=== PATIENT | male | born 1965 | race American Indian/Alaskan Native ===

== ENCOUNTER 2018-02-19 09:18 | Emergency (ER) | payer MEDICARE ==
[2018-02-19 09:30] VITALS: BP 137/90; PULSE 77; RESP 18; TEMP 97.6; O2SAT 95
[2018-02-19] MEDS ORDERED: Penicillin G Benzathine 2.4 Mill Unit/4 ml Syr IM ONE ×2 (10:26→10:52)
--- NOTE | 2018-02-19 10:50 | C.PDOC ---
History Of Present Illness 52 y/o male presents to the ER for evaluation of a penile lesion to the base of the penis. Patient states that he noticed the lesion after he cleaned his penis. Patient reports that he is sexually active and uses protection. Patient denies having any trauma and other complaints. Time Seen by Provider: 02/19/18 10:16 Chief Complaint (Nursing): Male Genitourinary History Per: Patient History/Exam Limitations: no limitations Onset/Duration Of Symptoms: Hrs Current Symptoms Are (Timing): Still Present Severity: Moderate Past Medical History Reviewed: Historical Data, Nursing Documentation, Vital Signs Vital Signs: Last Vital Signs Temp 97.6 F 02/19/18 09:27 Pulse 77 02/19/18 09:27 Resp 18 02/19/18 09:27 BP 137/90 02/19/18 09:27 Pulse Ox 95 02/19/18 17:16 - Medical History PMH: HTN, Migraine Other Surgeries: Hx of surgeries - [facility] Procedures CLOSURE SKIN & SUBCUTANEOUS NEC (08/29/00) INJECT/INFUSE NEC (10/20/14) Family History: States: No Known Family Hx - Social History Hx Alcohol Use: No (pt denies) Hx Substance Use: No (pt denies) Review Of Systems Except As Marked, All Systems Reviewed And Found Negative. Constitutional: Negative for: Fever, Chills Skin: Positive for: Lesions (penile lesion) Physical Exam - Physical Exam Appears: Non-toxic, No Acute Distress Skin: Normal Color, Warm, Dry Head: Atraumatic, Normacephalic Eye(s): bilateral: Normal Inspection Nose: Normal Oral Mucosa: Moist Neck: Supple Chest: Symmetrical Cardiovascular: Rhythm Regular Respiratory: Normal Breath Sounds, No Rales, No Rhonchi, No Wheezing Male Genital: Other (single papule, eroded and indurated, at base of penis) Extremity: Normal ROM Neurological/Psych: Oriented x3, Normal Speech, Normal Motor, Normal Sensation ED Course And Treatment O2 Sat by Pulse Oximetry: 95 (RA) Pulse Ox Interpretation: Normal Medical Decision Making Medical Decision Making: Plan: --Chlyamdia/GC --Penicillin G Benzathine --Rapid Plasma Reagin Disposition - Disposition Referrals: Jaxson Vila MD [Staff Provider] - Disposition: HOME/ ROUTINE Disposition Time: 05:00 Condition: STABLE Additional Instructions: please follow up with urologist. you may need further diagnositc testing and biopsy. please return to er with any worsening symptoms or concerns. Instructions: Syphilis, Screening for Sexually Transmitted Infections Forms: [facility] (Italian) - Clinical Impression Clinical Impression: Penile lesion - Scribe Statement The provider has reviewed the documentation as recorded by the Scribe Tamir Casey Provider Attestation: All medical record entries made by the Scribe were at my direction and personally dictated by me. I have reviewed the chart and agree that the record accurately reflects my personal performance of the history, physical exam, medical decision making, and the department course for this patient. I have also personally directed, reviewed, and agree with the discharge instructions and disposition.
== END 2018-02-19 10:57 | disposition home or self-care (01) ==
LOC: C.ER 09:18
DX: L98.8 Other specified disorders of the skin and subcutaneous tissue (principal)
CPT/HCPCS: 86592; 87491; 87591; 96372; 99283; J0561

== ENCOUNTER 2018-07-10 20:59 | Observation (INO) | payer MEDICARE ==
[2018-07-10] MEDS ORDERED: Aspirin 325 mg EC Tablets PO STA (21:42)
[2018-07-10 22:03] LABS: BASO % 0.7 % (0.0-2.0); EOS # 0.1 K/uL (0.0-0.7); EOS % 3.1 % (0.0-4.0); HEMOGLOBIN 12.2 g/dL (12.0-18.0); LYMPH # 0.8 K/uL (1.0-4.3); LYMPH % 28.1 % (20.0-40.0); MEAN CELL VOLUME 82.8 fL (80.0-94.0); MEAN CORPUSCULAR HEMOGLOBIN 28.2 pg (27.0-31.0); MEAN CORPUSCULAR HGB CONC 34.1 g/dL (33.0-37.0); MEAN PLATELET VOLUME 7.1 fL (7.2-11.7); MONO # 0.3 K/uL (0.0-0.8); MONO % 8.7 % (0.0-10.0); NEUT # 1.7 K/uL (1.8-7.0); NEUT % 59.4 % (50.0-75.0); NRBC % 0.2 % (0.0-2.0); RBC 4.32 Mil/uL (4.40-5.90); WHITE BLOOD COUNT 2.9 K/uL (4.8-10.8)
[2018-07-10] MEDS ORDERED: Aspirin 325 mg EC Tablets PO ONE (22:08)
[2018-07-10 22:14] LABS: ALB/GLOB RATIO 1.4 (1.0-2.1); ALBUMIN 3.9 g/dL (3.5-5.0); ALT/SGPT 25 U/L (21-72); AST/SGOT 19 U/L (17-59); BLOOD UREA NITROGEN 13 mg/dL (9-20); GFR AFRICAN-AMERICAN > 60; GFR NON-AFRICAN AMERICAN > 60
[2018-07-10 22:20] LABS: URINE BILIRUBIN NEGATIVE (NEGATIVE); URINE BLOOD NEGATIVE (NEGATIVE); URINE CLARITY Clear (Clear); URINE COLOR Yellow (YELLOW); URINE GLUCOSE (UA) NORMAL (Normal); URINE LEUKOCYTE ESTERASE NEG Leu/uL (Negative); URINE PROTEIN NEGATIVE (NEGATIVE); URINE UROBILINOGEN NORMAL mg/dL (0.2-1.0)
[2018-07-10 22:25] LABS: INR 1.1; PARTIAL THROMBOPLASTIN TIME 39 SECONDS (21-34); PROTHROMBIN TIME 12.1 SECONDS (9.7-12.2)
[2018-07-10 22:26] LABS: B-TYPE NATRIURETIC PEPTIDE 231 pg/mL (0-900); CK-MB 0.81 ng/mL (0.0-3.38); D DIMER < 200 ng/mlDDU (0-243)
[2018-07-10 22:35] LABS: BARBITURATES, UR NEGATIVE (NEGATIVE); BENZODIAZEPINES, UR NEGATIVE (NEGATIVE); OPIATES, UR NEGATIVE (NEGATIVE); PHENCYCLIDINE, UR NEGATIVE (NEGATIVE)
--- NOTE | 2018-07-11 00:43 | C.PDOC ---
History Of Present Illness Pt c/o left sided chest pain radiating to the LUE. Time Seen by Provider: 07/10/18 21:24 Chief Complaint (Nursing): Chest Pain History Per: Patient Onset/Duration Of Symptoms: Hrs (Just [employer]) Current Symptoms Are (Timing): Still Present Severity: Moderate Quality: "Pain" Associated Symptoms: denies: Nausea, Dyspnea, Diaphoresis, Syncope Modifying Factors: Other Indicated Below Alleviating Factors: None Additional History Per: Prior Records Past Medical History Reviewed: Historical Data, Nursing Documentation, Vital Signs Vital Signs: Last Vital Signs Temp 97.9 F 07/10/18 21:06 Pulse 74 07/10/18 21:06 Resp 20 07/10/18 21:06 BP 144/96 H 07/10/18 21:06 Pulse Ox 97 07/10/18 21:06 - Medical History PMH: HTN, Migraine - [facility] Procedures CLOSURE SKIN & SUBCUTANEOUS NEC (08/29/00) INJECT/INFUSE NEC (10/20/14) Family History: States: Unknown Family Hx - Social History Hx Tobacco Use: No Hx Alcohol Use: No (pt denies) Hx Substance Use: No (pt denies) Review Of Systems Except As Marked, All Systems Reviewed And Found Negative. Constitutional: Negative for: Fever, Weakness Cardiovascular: Positive for: Chest Pain Respiratory: Negative for: Shortness of Breath Gastrointestinal: Negative for: Vomiting, Abdominal Pain Musculoskeletal: Positive for: Other (Right knee pain). Negative for: Neck Pain , Back Pain Skin: Negative for: Rash Neurological: Negative for: Weakness, Numbness, Seizures Physical Exam - Physical Exam Appears: Non-toxic, No Acute Distress Skin: Normal Color, Warm, Dry Head: Atraumatic, Normacephalic Eye(s): bilateral: PERRL, EOMI Neck: Normal ROM, Supple Chest: Symmetrical, No Deformity Cardiovascular: Rhythm Regular Respiratory: Normal Breath Sounds, No Accessory Muscle Use Gastrointestinal/Abdominal: Soft, No Tenderness Extremity: Normal ROM, Tenderness (right knee, but no signs of trauma), No Swelling Pulses: Left Radial: Normal, Right Dorsalis Pedis: Normal Neurological/Psych: Oriented x3, Normal Motor, Normal Sensation ED Course And Treatment - Laboratory Results Result Diagrams: 07/10/18 21:58 07/10/18 21:58 Lab Interpretation: No Acute Changes ECG: Interpreted By Me, Viewed By Me ECG Rhythm: Sinus Rhythm ECG Interpretation: No Acute Changes Rate From EC O2 Sat by Pulse Oximetry: 97 Pulse Ox Interpretation: Normal - Radiology CXR: Interpreted by Me, Viewed By Me CXR Interpretation: Yes: No Acute Disease, Heart Size (wnl) Progress - Interventions Interventions:: Observation - Medications Administered Oral: Aspirin - Data Reviewed Data Reviewed: Lab, Diagnostic imaging, EKG, Old records - Patient Status Patient status: Mostly improved - Continuity of Care Discussed patient case with:: Patient, ED Nurse, On-call PMD-pt unassigned Disposition Discussed With : Reina Cisneros Comment: She accepted pt on her service and gave admitting orders to the nurse. Doctor Will See Patient In The: Hospital Counseled Patient/Family Regarding: Studies Performed, Diagnosis - Disposition Disposition: HOSPITALIZED Disposition Time: 00:44 Condition: FAIR - Clinical Impression Clinical Impression: Acute chest pain
[2018-07-11 08:01] LABS: BASO % 0.6 % (0.0-2.0); EOS # 0.1 K/uL (0.0-0.7); EOS % 3.4 % (0.0-4.0); HEMOGLOBIN 11.6 g/dL (12.0-18.0); LYMPH % 32.8 % (20.0-40.0); MEAN CELL VOLUME 83.1 fL (80.0-94.0); MEAN CORPUSCULAR HEMOGLOBIN 28.1 pg (27.0-31.0); MEAN CORPUSCULAR HGB CONC 33.9 g/dL (33.0-37.0); MEAN PLATELET VOLUME 7.8 fL (7.2-11.7); MONO # 0.2 K/uL (0.0-0.8); MONO % 7.8 % (0.0-10.0); NEUT # 1.8 K/uL (1.8-7.0); NEUT % 55.4 % (50.0-75.0); NRBC % 0.1 % (0.0-2.0); RBC 4.11 Mil/uL (4.40-5.90); RED CELL DISTRIBUTION WIDTH 13.7 % (11.5-14.5); WHITE BLOOD COUNT 3.2 K/uL (4.8-10.8)
[2018-07-11 08:09] LABS: ALB/GLOB RATIO 1.4 (1.0-2.1); ALBUMIN 3.7 g/dL (3.5-5.0); ALT/SGPT 25 U/L (21-72); AST/SGOT 20 U/L (17-59); BLOOD UREA NITROGEN 11 mg/dL (9-20); CALCIUM 9.2 mg/dl (8.6-10.4); GFR AFRICAN-AMERICAN > 60; GFR NON-AFRICAN AMERICAN > 60; HDL CHOLESTEROL 47 mg/dL (30-70)
[2018-07-11 08:19] LABS: LDL CHOLESTEROL 50 mg/dL (0-129)
[2018-07-11 08:21] LABS: CK-MB 0.68 ng/mL (0.0-3.38)
--- NOTE | 2018-07-11 10:40 | RAD ---
Date of service: 07/10/2018 PROCEDURE: CHEST RADIOGRAPH, 1 VIEW HISTORY: chest pain COMPARISON: None available. FINDINGS: LUNGS: The lungs are well inflated and clear. PLEURA: No pneumothorax or pleural fluid seen. CARDIOVASCULAR: Normal. OSSEOUS STRUCTURES: No significant abnormalities. VISUALIZED UPPER ABDOMEN: Normal. OTHER FINDINGS: None. IMPRESSION: No active pulmonary disease.
--- NOTE | 2018-07-11 12:33 | CARD ---
APPROVED REPORT Date of service: 07/11/2018 EKG Measurement Heart [id number] MD [id number] <Conclusion> Sinus bradycardia Otherwise normal ECG
--- NOTE | 2018-07-11 12:34 | CARD ---
APPROVED REPORT Date of service: 07/10/2018 EKG Measurement Heart [id number] [place] [id number] <Conclusion> Normal sinus rhythm Normal ECG
--- NOTE | 2018-07-11 14:04 | CP.PCM.PN ---
Subjective - Date & Time of Evaluation Date of Evaluation: 07/11/18 Time of Evaluation: 14:03 - Subjective Subjective: H&P dictated #[id number] Objective - Vital Signs/Intake and Output Vital Signs (last 24 hours): Temp Pulse Resp BP Pulse Ox 98.2 F 54 L 18 123/88 99 07/11/18 07:00 07/11/18 07:00 07/11/18 07:00 07/11/18 10:02 07/11/18 07:00 - Medications Medications: Current Medications Aspirin (Aspirin) 325 mg PO DAILY [facility] Last Admin: 07/11/18 10:02 Dose: 325 mg Metoprolol Tartrate (Lopressor) 25 mg PO BID [facility] Last Admin: 07/11/18 10:02 Dose: 25 mg - Labs Labs: 07/11/18 07:47 07/11/18 07:47 PT 12.1 SECONDS (9.7-12.2) 07/10/18 21:58 INR 1.1 07/10/18 21:58 APTT 39 SECONDS (21-34) H 07/10/18 21:58
--- NOTE | 2018-07-11 14:25 | CP.PCM.CON ---
History of Present Illness - History of Present Illness History of Present Illness: CONSULT HPI 52 years old black male with a history of hypertension admitted from [facility] by the emergency room complaining of atypical chest pain localized to retrosternal area. Patient was admitted in 2016 at [facility] for chest pain and cardiac workup was negative. Patient is a history of stroke in 2005 and since then has some weakness on the right side PAST HIST. PERSONAL HIST: Smoking. N Alcohol. N Allergy N Travel_- . FAMILY HIST : ROS : Constitutional: Negative for weight change, chills, night sweats, fatigue and usage of assist device. Eyes: Negative for redness, swelling, itching, discharge, vision changes, blurry vision, double vision, glaucoma, cataracts, Ears: Negative for hearing loss, ringing, , tinnitus, vertigo Nose: Negative for rhinorrhea, stuffiness, sniffing, itching, postnasal drip, discoloration, nasal congestion and epistaxis. Throat: Negative for throat clearing, sore throat, hoarseness, difficulty swallowing and difficulty speaking. Respiratory: Negative for cough, , sputum production, chest tightness, wheezing, pleuritic chest pain ,daytime somnolence, chronic cough, hemoptysis, snoring at night, Cardiovascular: Negative for, Edema of legs, leg cramps, angina, claudication, , irregular heartbeat, Neurology: Negative for irritability, , numbness and tingling, seizures, tremors, migraines, slurred speech, syncope, memory loss, mood changes, recurrent headaches right lower extremity weakness Gastrointestinal: Negative for difficulty swallowing, diarrhea, constipation, black stools, rectal bleeding, nausea, flatulence, reflux, poor appetite, changes in bowel habits, abdominal pain Genitourinary: Negative for frequent urination, hematuria, discharge, incontinence, urinary retention, frequent UTI, Psychiatric: Negative for depression, anxiety/panic, suicidal tendencies, Musculoskeletal: Negative for swollen joints, back pain, , neck pain, morning stiffness of joints, . Skin: Negative for rash, ulcers, itching, dry skin and pigmented lesions. P/E: Constitutional: Appears stated age and in no apparent distress. Head: Normocephalic. Ears: External ear canals patent without inflammation. Tympanic membranes intact with normal light reflex and landmark. Eyes: Pupils are central, bilaterally equal, symmetrical and reacts to light with normal movements and no icterus or pallor. Nose: External nares are patent. Mucosa is pink Mouth-Throat: Good general appearance and condition. No post-pharyngeal/oropharyngeal erythema and tonsillar hypertrophy. Good dental hygiene. Neck-Lymphatic: Neck is supple with normal ROM, no thyromegaly, lymph nodes or masses. JVD is normal with no carotid bruit. Lungs: Clear to percussion and auscultation with bilateral normal air entry. Cardiovascular: S1 and S2 are normal with no murmurs, gallops and rub. GI Exam: No hepatomegaly. Abdomen is soft and non-tender. No Organomegaly , masses or hernias are evident and bowel sounds are normal and active. Neurology: Higher function and right facial droop, with right lower extremity weakness Superficial and deep reflexes are normal with downwards planters. No cerebellar deficit with normal gait. Musculoskeletal: No tender spots with normal curvature of the spine with no swelling or restricted ROM of the small and large joints. Extremities: Homans sign absent. Intact pulses with no pitting edema, calf tenderness or skin color changes. Skin: No rash, eruptions or abnormal skin pigmentation LAB/RADIOLOGY: ASSESMENT : Atypical chest pain with history of hypertension and stroke acute coronary syndrome PLAN: Follow serial cardiac enzymes and echocardiogram and plan further Past Patient History - Past Medical History & Family History Past Medical History?: Yes - Past Social History Smoking Status: Never Smoked - CARDIAC Hx Hypertension: Yes - NEUROLOGICAL Hx Migraine: Yes - MUSCULOSKELETAL/RHEUMATOLOGICAL Hx Falls: No - PSYCHIATRIC Hx Substance Use: No (pt denies) - SURGICAL HISTORY Hx Surgeries: Yes Other/Comment: right finger surgery - ANESTHESIA Hx Anesthesia: Yes Hx Anesthesia Reactions: No Meds Allergies/Adverse Reactions: Allergies Allergy/AdvReac Type Severity Reaction Status Date / Time No Known Allergies Allergy Verified 02/25/16 08:13 - Medications Medications: Current Medications Aspirin (Aspirin) 325 mg PO DAILY [facility] Last Admin: 07/11/18 10:02 Dose: 325 mg Metoprolol Tartrate (Lopressor) 25 mg PO BID [facility] Last Admin: 07/11/18 10:02 Dose: 25 mg Results - Vital Signs Recent Vital Signs: Last Vital Signs Temp 98.2 F 07/11/18 07:00 Pulse 54 L 07/11/18 07:00 Resp 18 07/11/18 07:00 BP 123/88 07/11/18 10:02 Pulse Ox 99 07/11/18 07:00 - Labs Result Diagrams: 07/11/18 07:47 07/11/18 07:47 Labs: Laboratory Results - last 24 hr 07/10/18 07/10/18 07/10/18 21:58 21:58 21:58 WBC 2.9 L RBC 4.32 L Hgb 12.2 Hct 35.8 MCV 82.8 MCH 28.2 MCHC 34.1 RDW 14.0 Plt Count 162 MPV 7.1 L Neut % (Auto) 59.4 Lymph % (Auto) 28.1 [place] % (Auto) 8.7 Eos % (Auto) 3.1 Baso % (Auto) 0.7 Neut # (Auto) 1.7 L Lymph # (Auto) 0.8 L [place] # (Auto) 0.3 Eos # (Auto) 0.1 Baso # (Auto) 0.0 PT 12.1 INR 1.1 APTT 39 H D-Dimer, Quantitative < 200 Sodium 139 Potassium 3.9 Chloride 101 Carbon Dioxide 28 Anion Gap 14 BUN 13 Creatinine 1.0 Est GFR ( Amer) > 60 Est GFR (Non-Af Amer) > 60 Random Glucose 78 Calcium 9.0 Total Bilirubin 0.5 AST 19 ALT 25 Alkaline Phosphatase 64 Total Creatine Kinase 170 CK-MB (Mass) 0.81 Troponin I < 0.0120 NT-Pro-B Natriuret Pep 231 Total Protein 6.6 Albumin 3.9 Globulin 2.7 Albumin/Globulin Ratio 1.4 Triglycerides Cholesterol LDL Cholesterol Direct HDL Cholesterol TSH 3rd Generation Urine Color Urine Clarity Urine pH Ur Specific [place] Urine Protein Urine Glucose (UA) Urine Ketones Urine Blood Urine Nitrate Urine Bilirubin Urine Urobilinogen Ur Leukocyte Esterase Urine WBC (Auto) Urine Opiates Screen Urine Methadone Screen Ur Barbiturates Screen Ur Phencyclidine Scrn Ur Amphetamines Screen U Benzodiazepines Scrn U Oth Cocaine Metabols U Cannabinoids Screen 07/10/18 07/10/18 07/11/18 22:13 22:13 07:47 WBC 3.2 L RBC 4.11 L Hgb 11.6 L Hct 34.1 L MCV 83.1 MCH 28.1 MCHC 33.9 RDW 13.7 Plt Count 159 MPV 7.8 Neut % (Auto) 55.4 Lymph % (Auto) 32.8 [place] % (Auto) 7.8 Eos % (Auto) 3.4 Baso % (Auto) 0.6 Neut # (Auto) 1.8 Lymph # (Auto) 1.0 [place] # (Auto) 0.2 Eos # (Auto) 0.1 Baso # (Auto) 0.0 PT INR APTT D-Dimer, Quantitative Sodium Potassium Chloride Carbon Dioxide Anion Gap BUN Creatinine Est GFR ( Amer) Est GFR (Non-Af Amer) Random Glucose Calcium Total Bilirubin AST ALT Alkaline Phosphatase Total Creatine Kinase CK-MB (Mass) Troponin I NT-Pro-B Natriuret Pep Total Protein Albumin Globulin Albumin/Globulin Ratio Triglycerides Cholesterol LDL Cholesterol Direct HDL Cholesterol TSH 3rd Generation Urine Color Yellow Urine Clarity Clear Urine pH 5.0 Ur Specific [place] 1.009 Urine Protein Negative Urine Glucose (UA) Normal Urine Ketones Negative Urine Blood Negative Urine Nitrate Negative Urine Bilirubin Negative Urine Urobilinogen Normal Ur Leukocyte Esterase Neg Urine WBC (Auto) 1 Urine Opiates Screen Negative Urine Methadone Screen Negative Ur Barbiturates Screen Negative Ur Phencyclidine Scrn Negative Ur Amphetamines Screen Negative U Benzodiazepines Scrn Negative U Oth Cocaine Metabols Negative U Cannabinoids Screen Negative 07/11/18 07/11/18 07:47 07:47 WBC RBC Hgb Hct MCV MCH MCHC RDW Plt Count MPV Neut % (Auto) Lymph % (Auto) [place] % (Auto) Eos % (Auto) Baso % (Auto) Neut # (Auto) Lymph # (Auto) [place] # (Auto) Eos # (Auto) Baso # (Auto) PT INR APTT D-Dimer, Quantitative Sodium 142 Potassium 4.1 Chloride 103 Carbon Dioxide 34 H Anion Gap 9 L BUN 11 Creatinine 1.1 Est GFR ( Amer) > 60 Est GFR (Non-Af Amer) > 60 Random Glucose 80 Calcium 9.2 Total Bilirubin 0.5 AST 20 ALT 25 Alkaline Phosphatase 51 Total Creatine Kinase 158 CK-MB (Mass) 0.68 Troponin I < 0.0120 NT-Pro-B Natriuret Pep Total Protein 6.2 L Albumin 3.7 Globulin 2.6 Albumin/Globulin Ratio 1.4 Triglycerides 45 Cholesterol 129 LDL Cholesterol Direct 50 HDL Cholesterol 47 TSH 3rd Generation 1.93 Urine Color Urine Clarity Urine pH Ur Specific [place] Urine Protein Urine Glucose (UA) Urine Ketones Urine Blood Urine Nitrate Urine Bilirubin Urine Urobilinogen Ur Leukocyte Esterase Urine WBC (Auto) Urine Opiates Screen Urine Methadone Screen Ur Barbiturates Screen Ur Phencyclidine Scrn Ur Amphetamines Screen U Benzodiazepines Scrn U Oth Cocaine Metabols U Cannabinoids Screen
[2018-07-11 15:28] LABS: CK-MB 0.81 ng/mL (0.0-3.38)
[2018-07-11] MEDS ORDERED: Oxycodone/Acetaminophen 5/325 mg Tab PO PRN (15:50)
--- NOTE | 2018-07-11 15:52 | RAD ---
Date of service: 07/11/2018 PROCEDURE: Right Knee Radiographs. HISTORY: Pain COMPARISON: None. FINDINGS: BONES: Bone alignment and mineralization are normal. There is no acute displaced fracture or bone destruction. There is a prominent superior patellar enthesophyte. JOINTS: Normal. No osteoarthritis. JOINT EFFUSION: None. OTHER FINDINGS: None. IMPRESSION: No acute fracture or dislocation.
--- NOTE | 2018-07-12 04:25 | HP ---
Copied To: Reina Cisneros MD Attending MD: Reina Cisneros MD CHIEF COMPLAINT: The patient started having sudden onset of right knee joint pain, [place]. The pain got worse and then he started noticing left arm pain and left-sided chest pain which was sharp in nature, not associated with any shortness of breath, wheezing, diaphoresis, or dizziness. The pain lasted for about 20 minutes, then it decreased in intensity, but felt a severe pain by the time he came into the hospital. In the ED, he received treatment and slightly felt better, but still complaining of right knee joint pain. He denies any headache, dizziness. Denies any nausea, vomiting, but complaining of left-sided minimal chest pain, sharp in nature, not associated with any other symptoms. Denies any abdominal pain, diarrhea, or constipation. Complaining of right knee joint pain and he is not able to bend his right knee. This is the first time that he is having right knee pain and chest pain. He never had similar symptoms in the past. PAST MEDICAL HISTORY: Hypertension, migraine, and questionable traumatic brain injury. Following up with neurologist, . No history of diabetes or coronary artery disease. FAMILY HISTORY: Asthma in mother who is 80 years old, father . PAST SURGICAL HISTORY: Underwent finger surgeries many years ago. PERSONAL HISTORY: He is single, lives alone. Not having any children. Currently, he is not working. 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 SOCIAL HISTORY: Denies smoking, alcohol, or drug abuse. ALLERGIES: NO KNOWN DRUG ALLERGIES. MEDICATIONS: He could not recall the medications that he takes at home, but he thinks that medication is for his migraine. He takes only as needed basis. PHYSICAL EXAMINATION: GENERAL: Middle-aged male, lying in bed, in no acute distress. VITAL SIGNS: Blood pressure 130/86, pulse 54, respirations 18, temperature 98.2 degrees Fahrenheit, O2 saturation is 99% on room air. HEENT: Pupils equal, round, and reacting to light and accommodation. Extraocular muscles intact. No icterus. No pallor. No oral thrush. No pharyngeal congestion. NECK: Supple. No JVD. No thyromegaly. CHEST: Moving equally bilaterally on respiration. LUNGS: Bilateral vesicular breath sounds. No wheezing. No rhonchi. CVS: S1, S2 present. Regular. ABDOMEN: Soft, nontender. Bowel sounds present. No guarding. No rigidity. No rebound tenderness noted. CARBONATOR: Alert, awake, and oriented x3. No focal deficits noted. EXTREMITIES: Right extremity, knee joint tenderness present. Limited range of movements at the knee joint, right side. No edema. Palpable peripheral pulses. LABORATORY DATA: Labs done from the ED: WBC 2.9, hemoglobin 12.2, hematocrit 35.8, platelets 162. PT 12.1, INR 1.1, PTT 39. D-dimer less than 200, sodium 139, potassium 3.9, chloride 101, bicarb 28, BUN 13, creatinine 1, glucose 78, calcium 9. Total bilirubin 0.5. AST 19, ALT 25, alkaline phosphatase 64. Total CPK 170. Cardiac enzymes negative. ProBNP 231. Total protein 6.6, albumin 3.9, globulin 2.7. UA negative. Urine tox screen negative. Chest x-ray, negative. EKG: Consistent with normal sinus rhythm at 67 beats per minute. No acute ST-T changes. Echocardiogram done, but results pending. ASSESSMENT AND PLAN: Middle-aged male with prior history of migraine, hypertension, questionable history of cerebrovascular accident with some right-sided weakness for many years who came into the emergency room with left-sided chest pain and right knee joint pain and able to ambulate in the ED. The patient was evaluated and admitted for further evaluation of his coronary artery disease. 1. Left-sided chest pain, rule out acute coronary syndrome. His symptoms are consistent with atypical chest pain. 2. Right knee joint pain, possible osteoarthritis. 3. History of hypertension. 4. History of migraine headaches. 5. Questionable history of cerebrovascular disease with right-sided weakness, more than the lower extremity. PLAN: The patient is being admitted to cardiac telemetry. We will do serial cardiac enzymes, serial EKGs. We will check echocardiogram. We will give aspirin 325 mg p.o. daily, start metoprolol 25 mg p.o. daily. The patient is noncompliant with his medications, claiming he is not taking any medications for the blood pressure. We will obtain Cardiology evaluation with Dr. Pena. We will follow up with the knee x-ray and echocardiogram reports. We will monitor his blood pressure closely. We will add Motrin for right knee pain. We will add further recommendations as his clinical course progresses. Reina Cisneros MD
--- NOTE | 2018-07-12 11:19 | CP.PCM.PN ---
Subjective - Date & Time of Evaluation Date of Evaluation: 07/12/18 Time of Evaluation: 11:19 - Subjective Subjective: Progress note dictated #[id number] Objective - Vital Signs/Intake and Output Vital Signs (last 24 hours): Temp Pulse Resp BP Pulse Ox 98.0 F 56 L 18 117/81 99 07/12/18 07:25 07/12/18 07:25 07/12/18 07:25 07/12/18 10:22 07/12/18 07:25 Intake and Output: 07/12/18 07/12/18 06:59 18:59 Intake Total 110 Output Total 400 Balance -290 - Medications Medications: Current Medications Aspirin (Aspirin) 325 mg PO DAILY [facility] Last Admin: 07/12/18 10:22 Dose: 325 mg Ibuprofen (Motrin Tab) 400 mg PO Q8H PRN PRN Reason: Pain, moderate (4-7) Last Admin: 07/12/18 06:24 Dose: 400 mg Metoprolol Tartrate (Lopressor) 25 mg PO BID [facility] Last Admin: 07/12/18 10:22 Dose: 25 mg Oxycodone/Acetaminophen (Percocet 5/325 Mg Tab) 1 tab PO Q6H PRN PRN Reason: Pain, severe (8-10) Stop: 07/14/18 15:51 - Labs Labs: 07/11/18 07:47 07/11/18 07:47 PT 12.1 SECONDS (9.7-12.2) 07/10/18 21:58 INR 1.1 07/10/18 21:58 APTT 39 SECONDS (21-34) H 07/10/18 21:58
--- NOTE | 2018-07-12 12:12 | CARD ---
APPROVED REPORT Date of service: 07/11/2018 EXAM: Two-dimensional and M-mode echocardiogram with Doppler and color Doppler. Other Information Quality : GoodRhythm : INDICATION Dyspnea Chest Pain RISK FACTORS Hypertension 2D DIMENSIONS IVSd0.7 (0.7-1.1cm)Aortic Root (2D)3.1 (2.0-3.7cm) LVDd4.6 (3.9-5.9cm)PWd0.8 (0.7-1.1cm) LVDs3.1 (2.5-4.0cm)FS (%) 32.1 % LVEF (%)60.4 (>50%) M-Mode DIMENSIONS RVDd2.07 (2.1-3.2cm)Left Atrium (MM)3.61 (2.5-4.0cm) IVSd0.91 (0.7-1.1cm)Aortic Root3.23 (2.2-3.7cm) LVDd4.83 (4.0-5.6cm)Aortic Cusp Exc.2.23 (1.5-2.0cm) PWd0.94 (0.7-1.1cm)FS (%) 35 % LVDs3.13 (2.0-3.8cm)TAPSE24.08 cm LVEF (%)64 (>50%) Mitral Valve MV E Wmajpqsz59.6cm/sMV A Mcaimtoh29.5cm/sE/A ratio1.3 PISA0.67 cm TDI E/Lateral E'0.0E/Medial E'0.0 Tricuspid Valve TR Peak [id number]/sTR Peak [id number] LEFT VENTRICLE The left ventricle is normal size. There is normal left ventricular wall thickness. The Ejection Fraction is 60-65%. There is normal LV segmental wall motion. The left ventricular diastolic function is normal. RIGHT VENTRICLE The right ventricle is normal size. The right ventricular systolic function is normal. ATRIA The left atrium size is normal. The right atrium size is normal. The interatrial septum is intact with no evidence for an atrial septal defect. AORTIC VALVE The aortic valve is trileaflet. No aortic regurgitation is present. MITRAL VALVE The mitral valve is normal in structure. Mitral regurgitation is mild. TRICUSPID VALVE The tricuspid valve is normal in structure. There is mild tricuspid regurgitation. Right ventricular systolic pressure is estimated at 30 mmHg. There is no pulmonary hypertension. PULMONIC VALVE The pulmonary valve is normal in structure. GREAT VESSELS The aortic root is normal in size. normal size ivc with poor inspiratory collapse. PERICARDIAL EFFUSION There is no pericardial effusion. <Conclusion> The left ventricle is normal size. The Ejection Fraction is 60-65%. The left ventricular diastolic function is normal. Mitral regurgitation is mild. There is mild tricuspid regurgitation. Right ventricular systolic pressure is estimated at 30 mmHg. There is no pulmonary hypertension. normal size ivc with poor inspiratory collapse. There is no pericardial effusion.
--- NOTE | 2018-07-12 14:00 | CP.PCM.PN ---
Subjective - Date & Time of Evaluation Date of Evaluation: 07/12/18 Time of Evaluation: 13:59 - Subjective Subjective: cardiac workup shows negative cardiac enzymes 3. No new EKG changes Echocardiogram showed normal left ventricular systolic function with no wall motion abnormality. Currently patient has some atypical chest discomfort and leg pains Patient is clear for discharge and obtain IV Lexiscan Myoview stress test as an outpatient. Objective - Vital Signs/Intake and Output Vital Signs (last 24 hours): Temp Pulse Resp BP Pulse Ox 98.0 F 56 L 18 117/81 99 07/12/18 07:25 07/12/18 07:25 07/12/18 07:25 07/12/18 10:22 07/12/18 07:25 Intake and Output: 07/12/18 07/12/18 11:59 23:59 Intake Total 110 Output Total 400 Balance -290 - Medications Medications: Current Medications Aspirin (Aspirin) 325 mg PO DAILY [facility] Last Admin: 07/12/18 10:22 Dose: 325 mg Ibuprofen (Motrin Tab) 400 mg PO Q8H PRN PRN Reason: Pain, moderate (4-7) Last Admin: 07/12/18 06:24 Dose: 400 mg Metoprolol Tartrate (Lopressor) 25 mg PO BID [facility] Last Admin: 07/12/18 10:22 Dose: 25 mg Oxycodone/Acetaminophen (Percocet 5/325 Mg Tab) 1 tab PO Q6H PRN PRN Reason: Pain, severe (8-10) Stop: 07/14/18 15:51 - Labs Labs: 07/11/18 07:47 07/11/18 07:47 PT 12.1 SECONDS (9.7-12.2) 07/10/18 21:58 INR 1.1 07/10/18 21:58 APTT 39 SECONDS (21-34) H 07/10/18 21:58
[2018-07-12 14:10] LABS: IRON 48 ug/dL (49-181)
[2018-07-12 14:20] LABS: % IRON SATURATION 20 (20-55); TOTAL IRON BINDING CAPACITY 244 ug/dL (250-450)
[2018-07-12 15:30] LABS: FERRITIN 64.1 ng/mL
[2018-07-12 15:59] LABS: FOLATE > 20.0 ng/mL
[2018-07-12 19:22] VITALS: RESP 20
--- NOTE | 2018-07-13 01:59 | PN ---
Copied To: Reina Cisneros MD Attending MD: Reina Cisneros MD DATE: 07/12/2018 SUBJECTIVE: The patient was seen and examined at bedside. The patient is still complaining of right knee pain and claiming that he is not able to ambulate. Denies any chest pain. Denies any nausea or vomiting. REVIEW OF SYSTEMS: All other systems reviewed and were found to be negative. PHYSICAL EXAMINATION: GENERAL: Middle-aged male, lying in bed, in no acute distress. VITAL SIGNS: Blood pressure 123/85, pulse 56, respirations 18, temperature 98 degrees Fahrenheit, and O2 saturations 99% on room air. HEENT: Pupils are equal, round, and reacting to light and accommodation. Extraocular muscles intact. No icterus. No pallor. No oral thrush. No pharyngeal congestion. NECK: Supple. No JVD. LUNGS: Bilateral vesicular breath sounds. No wheezing. No rhonchi. CARDIOVASCULAR SYSTEM: S1 and S2 present. Regular. ABDOMEN: Soft and nontender. Bowel sounds present. No guarding. No rigidity. No rebound tenderness noted. CENTRAL NERVOUS SYSTEM: Alert, awake, and oriented x3. No focal deficits noted. EXTREMITIES: Right knee joint tenderness noted, limited movements at the right knee joint. No edema. Palpable peripheral pulses. MEDICATIONS: Include aspirin 325 mg p.o. daily, Motrin 400 mg p.o. every 8 hours p.r.n., Lopressor 25 mg p.o. b.i.d., Percocet as needed. LABORATORY DATA: Cardiac enzymes x3 negative. B12 is 265, folate is more than 20, TSH is 1.93. Iron is 48, TIBC is 244, iron saturation is 20, ferritin is 64.1. Echocardiogram consistent with ejection fraction of 60% to 65%. Left ventricle is normal size. Mild tricuspid regurgitation. ASSESSMENT AND PLAN: A middle-aged male with history of hypertension, migraine, admitted for right lower extremity pain, mainly the right knee joint pain and atypical chest pain. Acute coronary syndrome ruled out by negative cardiac enzymes, negative EKGs, and normal echocardiogram. The patient is still complaining of right knee joint pain. We will request physical therapy and occupational therapy. We will continue with pain medication. Continue with aspirin, beta-blockers. Cardiology input appreciated. The patient is cleared cardiac murray. After Physical Therapy evaluation, we will plan discharging the patient. Discussed with Case Management. Reina Cisneros MD
[2018-07-13 16:08] VITALS: BP 111/75; PULSE 71; TEMP 97.7; O2SAT 99
--- NOTE | 2018-07-13 16:11 | CP.PCM.PN ---
Subjective - Date & Time of Evaluation Date of Evaluation: 07/13/18 Time of Evaluation: 16:10 - Subjective Subjective: PT CLEARED FOR D/C HOME TODAY PER DR. WRIGHT. PT TO F/U WITH DR. WALTERS IN THE OFFICE FOR STRESS TEST. RX LEFT FOR PT IN CHART. HOME VNA AND RX FOR CANE GIVEN TO CM. NO FURTHER ORDERS. Objective - Vital Signs/Intake and Output Vital Signs (last 24 hours): Temp Pulse Resp BP Pulse Ox 97.7 F 71 20 111/75 99 07/13/18 15:00 07/13/18 15:00 07/13/18 15:00 07/13/18 15:00 07/13/18 15:00 Intake and Output: 07/13/18 07/13/18 06:59 18:59 Intake Total 10 Balance 10 - Medications Medications: Current Medications Aspirin (Aspirin) 325 mg PO DAILY [facility] Last Admin: 07/13/18 09:28 Dose: 325 mg Cyanocobalamin (Vitamin B12 1000 Mcg/Ml Inj) 1,000 mcg IM DAILY [facility] Last Admin: 07/13/18 09:33 Dose: 1,000 mcg Ibuprofen (Motrin Tab) 400 mg PO Q8H PRN PRN Reason: Pain, moderate (4-7) Last Admin: 07/13/18 09:30 Dose: 400 mg Metoprolol Tartrate (Lopressor) 25 mg PO BID [facility] Last Admin: 07/13/18 09:29 Dose: 25 mg Oxycodone/Acetaminophen (Percocet 5/325 Mg Tab) 1 tab PO Q6H PRN PRN Reason: Pain, severe (8-10) Stop: 07/14/18 15:51 - Labs Labs: 07/11/18 07:47 07/11/18 07:47 PT 12.1 SECONDS (9.7-12.2) 07/10/18 21:58 INR 1.1 07/10/18 21:58 APTT 39 SECONDS (21-34) H 07/10/18 21:58
--- NOTE | 2018-07-13 17:12 | CP.PCM.DIS ---
Provider - Provider Date of Admission: 07/11/18 00:45 Attending physician: Reina Wright MD Hospital Course - Lab Results Lab Results: Most Recent Lab Values WBC 3.2 K/uL (4.8-10.8) L 07/11/18 07:47 RBC 4.11 Mil/uL (4.40-5.90) L 07/11/18 07:47 Hgb 11.6 g/dL (12.0-18.0) L 07/11/18 07:47 Hct 34.1 % (35.0-51.0) L 07/11/18 07:47 MCV 83.1 fL (80.0-94.0) 07/11/18 07:47 MCH 28.1 pg (27.0-31.0) 07/11/18 07:47 MCHC 33.9 g/dL (33.0-37.0) 07/11/18 07:47 RDW 13.7 % (11.5-14.5) 07/11/18 07:47 Plt Count 159 K/uL (130-400) 07/11/18 07:47 MPV 7.8 fL (7.2-11.7) 07/11/18 07:47 Neut % (Auto) 55.4 % (50.0-75.0) 07/11/18 07:47 Lymph % (Auto) 32.8 % (20.0-40.0) 07/11/18 07:47 Kaufman % (Auto) 7.8 % (0.0-10.0) 07/11/18 07:47 Eos % (Auto) 3.4 % (0.0-4.0) 07/11/18 07:47 Baso % (Auto) 0.6 % (0.0-2.0) 07/11/18 07:47 Neut # (Auto) 1.8 K/uL (1.8-7.0) 07/11/18 07:47 Lymph # (Auto) 1.0 K/uL (1.0-4.3) 07/11/18 07:47 Kaufman # (Auto) 0.2 K/uL (0.0-0.8) 07/11/18 07:47 Eos # (Auto) 0.1 K/uL (0.0-0.7) 07/11/18 07:47 Baso # (Auto) 0.0 K/uL (0.0-0.2) 07/11/18 07:47 PT 12.1 SECONDS (9.7-12.2) 07/10/18 21:58 INR 1.1 07/10/18 21:58 APTT 39 SECONDS (21-34) H 07/10/18 21:58 D-Dimer, Quantitative < 200 ng/mlDDU (0-243) 07/10/18 21:58 Sodium 142 mmol/L (132-148) 07/11/18 07:47 Potassium 4.1 mmol/L (3.6-5.2) 07/11/18 07:47 Chloride 103 mmol/L (98-107) 07/11/18 07:47 Carbon Dioxide 34 mmol/L (22-30) H 07/11/18 07:47 Anion Gap 9 (10-20) L 07/11/18 07:47 BUN 11 mg/dL (9-20) 07/11/18 07:47 Creatinine 1.1 mg/dL (0.8-1.5) 07/11/18 07:47 Est GFR ( Amer) > 60 07/11/18 07:47 Est GFR (Non-Af Amer) > 60 07/11/18 07:47 Random Glucose 80 mg/dL (75-110) 07/11/18 07:47 Calcium 9.2 mg/dl (8.6-10.4) 07/11/18 07:47 Iron 48 ug/dL (49-181) L 07/12/18 13:55 TIBC 244 ug/dL (250-450) L 07/12/18 13:55 % Saturation 20 (20-55) 07/12/18 13:55 Ferritin 64.1 ng/mL 07/12/18 13:55 Total Bilirubin 0.5 mg/dL (0.2-1.3) 07/11/18 07:47 AST 20 U/L (17-59) 07/11/18 07:47 ALT 25 U/L (21-72) 07/11/18 07:47 Alkaline Phosphatase 51 U/L (38-126) 07/11/18 07:47 Total Creatine Kinase 240 U/L (55-170) H 07/11/18 14:54 CK-MB (Mass) 0.81 ng/mL (0.0-3.38) 07/11/18 14:54 Troponin I < 0.0120 ng/mL (0.00-0.120) 07/11/18 14:54 NT-Pro-B Natriuret Pep 231 pg/mL (0-900) 07/10/18 21:58 Total Protein 6.2 g/dL (6.3-8.3) L 07/11/18 07:47 Albumin 3.7 g/dL (3.5-5.0) 07/11/18 07:47 Globulin 2.6 gm/dL (2.2-3.9) 07/11/18 07:47 Albumin/Globulin Ratio 1.4 (1.0-2.1) 07/11/18 07:47 Triglycerides 45 mg/dL (0-149) 07/11/18 07:47 Cholesterol 129 mg/dL (0-199) 07/11/18 07:47 LDL Cholesterol Direct 50 mg/dL (0-129) 07/11/18 07:47 HDL Cholesterol 47 mg/dL (30-70) 07/11/18 07:47 Vitamin B12 265 pg/mL (239-931) 07/12/18 13:55 Folate > 20.0 ng/mL 07/12/18 13:55 TSH 3rd Generation 1.93 mIU/L (0.46-4.68) 07/11/18 07:47 Urine Color Yellow (YELLOW) 07/10/18 22:13 Urine Clarity Clear (Clear) 07/10/18 22:13 Urine pH 5.0 (5.0-8.0) 07/10/18 22:13 Ur Specific [place] 1.009 (1.003-1.030) 07/10/18 22:13 Urine Protein Negative mg/dL (NEGATIVE) 07/10/18 22:13 Urine Glucose (UA) Normal mg/dL (Normal) 07/10/18 22:13 Urine Ketones Negative mg/dL (NEGATIVE) 07/10/18 22:13 Urine Blood Negative (NEGATIVE) 07/10/18 22:13 Urine Nitrate Negative (NEGATIVE) 07/10/18 22:13 Urine Bilirubin Negative (NEGATIVE) 07/10/18 22:13 Urine Urobilinogen Normal mg/dL (0.2-1.0) 07/10/18 22:13 Ur Leukocyte Esterase Neg Deep/uL (Negative) 07/10/18 22:13 Urine WBC (Auto) 1 /hpf (0-5) 07/10/18 22:13 Urine Opiates Screen Negative (NEGATIVE) 07/10/18 22:13 Urine Methadone Screen Negative (NEGATIVE) 07/10/18 22:13 Ur Barbiturates Screen Negative (NEGATIVE) 07/10/18 22:13 Ur Phencyclidine Scrn Negative (NEGATIVE) 07/10/18 22:13 Ur Amphetamines Screen Negative (NEGATIVE) 07/10/18 22:13 U Benzodiazepines Scrn Negative (NEGATIVE) 07/10/18 22:13 U Oth Cocaine Metabols Negative (NEGATIVE) 07/10/18 22:13 U Cannabinoids Screen Negative (NEGATIVE) 07/10/18 22:13 Discharge Plan - Discharge Medications Prescriptions: Aspirin [Ecotrin] 81 mg PO DAILY #30 tabec Metoprolol Tartrate [Lopressor] 25 mg PO BID #60 tab Cyanocobalamin (Vitamin B-12) [Vitamin B-12] 1,000 mcg PO DAILY #60 capsule - Follow Up Plan Condition: FAIR Disposition: HOME/ ROUTINE Instructions: Chest Pain (DC), Aspirin, Cyanocobalamin, Metoprolol Additional Instructions: -FOLLOW UP WITH DR. WRIGHT OR YOUR PRIMARY DOCTOR IN THE OFFICE WITHIN 1 WEEK. -FOLLOW UP WITH DR. PENA IN THE OFFICE WITHIN 1 WEEK FOR FURTHER CARDIAC TESTING, INCLUDING A STRESS TEST. -THE FOLLOWING MEDICATIONS HAVE BEEN PRESCRIBED TO YOU: 1) ASPIRIN 81 MG---THIS IS FOR YOUR HEART---TAKE 1 TABLET BY MOUTH ONCE A DAY. 2) METOPROLOL 25 MG---THIS IS FOR YOUR HEART---TAKE 1 TABLET BY MOUTH TWICE A DAY (MORNING AND EVENING) 3) VITAMIN B12 SUPPLEMENT--TAKE ONCE A DAY. -FOR FURTHER CONCERNS OR QUESTIONS, CONTACT DR. PENA OR DR. WRIGHT. Referrals: Reina Wright MD [Staff Provider] - Anupam Pena MD [Staff Provider] -
== END 2018-07-13 18:02 | disposition home or self-care (01) ==
LOC: C.ER 20:59 → C.9E 07-11 00:45 → C.6T 07-11 01:59
PROVIDERS: ADMIT Internal Medicine; ATTEND Internal Medicine
DX: R07.89 Other chest pain (principal); M25.561 Pain in right knee; I10 Essential (primary) hypertension; I25.10 Atherosclerotic heart disease of native coronary artery without angina pectoris; I69.351 Hemiplegia and hemiparesis following cerebral infarction affecting right dominant side
CPT/HCPCS: 36415; 71045; 73562; 80053; 80061; 81001; 82607; 82728; 82746; 83540; 83550; 83880; 84443; 84484; 85025; 85378; 85610; 85730; 93005; 93306; 97116; 97162; 99285; G0378; G0480; G8978; G8979; J3420

== ENCOUNTER 2018-07-29 23:18 | Emergency (ER) | payer MEDICARE ==
[2018-07-30 00:12] LABS: BASO % 0.5 % (0.0-2.0); EOS # 0.2 K/uL (0.0-0.7); EOS % 4.7 % (0.0-4.0); LYMPH # 1.4 K/uL (1.0-4.3); LYMPH % 37.3 % (20.0-40.0); MEAN CORPUSCULAR HEMOGLOBIN 27.9 pg (27.0-31.0); MEAN CORPUSCULAR HGB CONC 33.3 g/dL (33.0-37.0); MEAN PLATELET VOLUME 7.7 fL (7.2-11.7); MONO # 0.4 K/uL (0.0-0.8); MONO % 9.4 % (0.0-10.0); NEUT # 1.8 K/uL (1.8-7.0); NEUT % 48.1 % (50.0-75.0); NRBC % 0.2 % (0.0-2.0); RBC 4.64 Mil/uL (4.40-5.90); RED CELL DISTRIBUTION WIDTH 13.8 % (11.5-14.5); WHITE BLOOD COUNT 3.8 K/uL (4.8-10.8)
[2018-07-30 00:16] LABS: ALB/GLOB RATIO 1.4 (1.0-2.1); ALBUMIN 4.5 g/dL (3.5-5.0); ALT/SGPT 22 U/L (21-72); AST/SGOT 34 U/L (17-59); BLOOD UREA NITROGEN 16 mg/dL (9-20); CALCIUM 9.4 mg/dl (8.6-10.4); GFR NON-AFRICAN AMERICAN > 60
[2018-07-30 00:17] LABS: INR 1.1; PROTHROMBIN TIME 11.8 SECONDS (9.7-12.2)
[2018-07-30 00:29] LABS: CK-MB 2.56 ng/mL (0.0-3.38)
--- NOTE | 2018-07-30 01:08 | C.PDOC ---
History Of Present Illness 52 year old male presents to the ER with a complaint of a diffuse headache and left arm pain that began one hour [employer]. Patient admits to a Hx of migraine headaches but states it feels different from prior episodes, he typically takes fioricet but did not try any tonight. Patient came in because he was concerned of his left arm pain. Denies extremity weakness, sensory changes, facial droop, slurred speech, gait changes, chest pain, SOB, or palpitations. Time Seen by Provider: 07/29/18 23:38 Chief Complaint (Nursing): Headache History Per: Patient History/Exam Limitations: no limitations Onset/Duration Of Symptoms: Hrs Current Symptoms Are (Timing): Still Present Associated Symptoms: Other ((+) Headache, Left arm pain (-) Sensory changes, Facial droop, Slurred speech, Gait changes, Chest pain, SOB, Palpitations.). denies: Extremity Weakness Recent travel outside of the [place]: No Past Medical History Reviewed: Historical Data, Nursing Documentation, Vital Signs Vital Signs: Last Vital Signs Temp 98.3 F 07/29/18 23:34 Pulse 61 07/30/18 00:59 Resp 16 07/30/18 00:59 BP 114/80 07/30/18 00:59 Pulse Ox 100 07/30/18 01:22 - Medical History PMH: HTN, Migraine - [facility] Procedures CLOSURE SKIN & SUBCUTANEOUS NEC (08/29/00) INJECT/INFUSE NEC (10/20/14) Family History: States: Unknown Family Hx - Social History Hx Tobacco Use: No Hx Alcohol Use: No (pt denies) Hx Substance Use: No (pt denies) - Immunization History Hx Tetanus Toxoid Vaccination: No Hx Influenza Vaccination: No Hx Pneumococcal Vaccination: Yes Review Of Systems Except As Marked, All Systems Reviewed And Found Negative. Musculoskeletal: Positive for: Arm Pain (Left) Neurological: Positive for: Headache Physical Exam - Physical Exam Appears: Non-toxic, Other (Comfortable) Skin: Normal Color, Warm, Dry Head: Atraumatic, Normacephalic Eye(s): bilateral: Normal Inspection, PERRL, EOMI Oral Mucosa: Moist Neck: Normal, Supple Chest: Symmetrical, No Tenderness Cardiovascular: Rhythm Regular Respiratory: Normal Breath Sounds, No Rales, No Rhonchi, No Wheezing Gastrointestinal/Abdominal: Soft, No Tenderness Extremity: Normal ROM (x4), Capillary Refill (<2 seconds), Other (Left forearm mildly tender to palpation. No swelling or erythema.) Pulses: Left Radial: Normal, Right Radial: Normal Neurological/Psych: Oriented x3, Normal Speech, Normal Motor, Normal Sensation Gait: Steady ED Course And Treatment - Laboratory Results Result Diagrams: 07/29/18 23:59 07/29/18 23:59 ECG: Interpreted By Me, Viewed By Me ECG Rhythm: Sinus Bradycardia ECG Interpretation: Normal Interpretation Of ECG: Normal axis, no acute ST/T wave changes Rate From EC O2 Sat by Pulse Oximetry: 100 (Room air) Pulse Ox Interpretation: Normal Progress Note: CT head, blood work, and EKG ordered. Tylenol administered. Disposition Counseled Patient/Family Regarding: Studies Performed, Diagnosis, Need For Followup, Rx Given - Disposition Referrals: [facility] [Outside] Disposition: HOME/ ROUTINE Disposition Time: 03:00 Condition: STABLE Additional Instructions: FOLLOW UP WITH YOUR DOCTOR IN 1-2 DAYS RETURN TO ER IF YOUR SYMPTOMS WORSEN Prescriptions: Acetaminophen/Butalbital/Caf [Fioricet] 1 tab PO TID PRN #20 tab PRN Reason: Headache Instructions: Headache, Adult (DC) Forms: [employer] (Togolese) Print Language: CROATIAN - POA Present On Arrival: None - Clinical Impression Clinical Impression: Headache, Left forearm pain - Scribe Statement The provider has reviewed the documentation as recorded by the Scribfariba Bautista All medical record entries made by the Scribe were at my direction and personally dictated by me. I have reviewed the chart and agree that the record accurately reflects my personal performance of the history, physical exam, medical decision making, and the department course for this patient. I have also personally directed, reviewed, and agree with the discharge instructions and disposition.
[2018-07-30 03:40] VITALS: BP 112/88; PULSE 88; RESP 18; TEMP 98.2; O2SAT 97
--- NOTE | 2018-07-30 10:47 | CT ---
Date of service: 07/30/2018 PROCEDURE: CT HEAD WITHOUT CONTRAST. HISTORY: headache, left arm pain COMPARISON: None available. TECHNIQUE: Axial computed tomography images were obtained through the head/brain without intravenous contrast. Radiation dose: Total exam DLP = 876.7 the mGy-cm. This CT exam was performed using one or more of the following dose reduction techniques: Automated exposure control, adjustment of the mA and/or kV according to patient size, and/or use of iterative reconstruction technique. FINDINGS: HEMORRHAGE: No acute intracranial hemorrhage. BRAIN: Suspect minimal chronic periventricular white matter ischemic changes. No obvious parenchymal nor extra-axial mass or collection seen on this noncontrast study. Mild generalized volume loss. VENTRICLES: No obstructive hydrocephalus. CALVARIUM: Unremarkable. PARANASAL SINUSES: Unremarkable as visualized. No significant inflammatory changes. MASTOID AIR CELLS: Unremarkable as visualized. No inflammatory changes. OTHER FINDINGS: None. IMPRESSION: No acute intracranial hemorrhage. Suspect minor chronic periventricular white matter ischemic changes. Mild generalized volume loss.
--- NOTE | 2018-08-01 09:23 | CARD ---
APPROVED REPORT Date of service: 07/30/2018 EKG Measurement Heart [id number] <Conclusion> Sinus bradycardia Otherwise normal ECG
== END 2018-07-30 03:37 | disposition home or self-care (01) ==
LOC: C.ER 23:18
DX: R51 Headache (principal); M79.632 Pain in left forearm

== ENCOUNTER 2018-09-16 20:42 | Emergency (ER) | payer MEDICARE ==
[2018-09-16 20:43] VITALS: BMI 20.5
[2018-09-16 21:21] VITALS: PULSE 73
[2018-09-16 21:21] LABS: HEMOGLOBIN 12.5 g/dL (12.0-18.0); RBC 4.4 Mil/uL (4.40-5.90); WHITE BLOOD COUNT 3.2 K/uL (4.8-10.8)
[2018-09-16 21:22] LABS: BASO % 0.8 % (0.0-2.0); EOS # 0.1 K/uL (0.0-0.7); EOS % 1.7 % (0.0-4.0); LYMPH # 0.9 K/uL (1.0-4.3); LYMPH % 27.8 % (20.0-40.0); MEAN CELL VOLUME 84.7 fL (80.0-94.0); MEAN CORPUSCULAR HEMOGLOBIN 28.5 pg (27.0-31.0); MEAN CORPUSCULAR HGB CONC 33.6 g/dL (33.0-37.0); MEAN PLATELET VOLUME 7.9 fL (7.2-11.7); MONO # 0.3 K/uL (0.0-0.8); MONO % 7.8 % (0.0-10.0); NEUT % 61.9 % (50.0-75.0); RED CELL DISTRIBUTION WIDTH 13.6 % (11.5-14.5)
[2018-09-16 21:31] VITALS: O2SAT 99
[2018-09-16 22:00] LABS: ALB/GLOB RATIO 1.2 (1.0-2.1); ALBUMIN 3.9 g/dL (3.5-5.0); ALT/SGPT 15 U/L (21-72); AST/SGOT 26 U/L (17-59); BLOOD UREA NITROGEN 11 mg/dL (9-20); CALCIUM 9.2 mg/dl (8.6-10.4); GFR NON-AFRICAN AMERICAN > 60
[2018-09-16 22:12] LABS: B-TYPE NATRIURETIC PEPTIDE 131 pg/mL (0-900)
--- NOTE | 2018-09-16 22:16 | C.PDOC ---
History Of Present Illness 52 y/o male presents to the ED complaining of abdominal pain associated with anxiety, onset this evening. Patient states he was out having dinner when he felt sudden onset of panic and anxiety. Associated with nausea and vague abdomi nal discomfort. Took Tylenol without relief. Patient otherwise denies any vomiting, diarrhea, dizziness, palpitations, or weakness. Has questionable hx of stroke, with no obvious residual deficits. On arrival to the ED patient appears neurologically intact. Time Seen by Provider: 09/16/18 20:53 Chief Complaint (Nursing): Abdominal Pain History Per: Patient History/Exam Limitations: no limitations Onset/Duration Of Symptoms: Hrs Current Symptoms Are (Timing): Still Present Location Of Pain/Discomfort: Diffuse Additional History Per: EMS Past Medical History Reviewed: Historical Data, Nursing Documentation, Vital Signs Vital Signs: Last Vital Signs Temp 97.9 F 09/16/18 20:49 Pulse 73 09/16/18 21:21 Resp 19 09/16/18 21:21 BP 121/84 09/16/18 21:21 Pulse Ox 99 09/16/18 21:31 - Medical History PMH: HTN, Migraine - [facility] Procedures CLOSURE SKIN & SUBCUTANEOUS NEC (08/29/00) INJECT/INFUSE NEC (10/20/14) Family History: States: No Known Family Hx - Social History Hx Tobacco Use: No Hx Alcohol Use: No (pt denies) Hx Substance Use: No (pt denies) - Immunization History Hx Tetanus Toxoid Vaccination: No Hx Influenza Vaccination: No Hx Pneumococcal Vaccination: Yes Review Of Systems Except As Marked, All Systems Reviewed And Found Negative. Constitutional: Negative for: Fever, Chills Eyes: Negative for: Vision Change Respiratory: Negative for: Shortness of Breath Gastrointestinal: Positive for: Nausea, Abdominal Pain. Negative for: Diarrhea, Constipation Neurological: Negative for: Weakness, Dizziness Psych: Positive for: Anxiety. Negative for: Suicidal ideation Physical Exam - Physical Exam Appears: Non-toxic, No Acute Distress, Other (Tall, thin, appears anxious) Skin: Normal Color, Warm, Dry Head: Atraumatic, Normacephalic Eye(s): bilateral: PERRL, EOMI, Other (Pupillary mydriasis) Oral Mucosa: Moist Neck: Normal ROM, Supple Chest: Symmetrical Cardiovascular: Rhythm Regular, No Murmur Respiratory: Normal Breath Sounds, No Accessory Muscle Use, No Wheezing Gastrointestinal/Abdominal: Bowel Sounds (active), Soft, No Tenderness, No Guarding, No Rebound Back: No CVA Tenderness, No Vertebral Tenderness Extremity: Bilateral: Atraumatic, Normal Color And Temperature, Normal ROM Neurological/Psych: Oriented x3, Other (Pressured speech) Gait: Steady ED Course And Treatment - Laboratory Results Result Diagrams: 09/16/18 21:18 09/16/18 21:18 Lab Interpretation: Normal (trop neg.) ECG: Interpreted By Me ECG Rhythm: Sinus Rhythm ECG Interpretation: Normal Rate From EC O2 Sat by Pulse Oximetry: 99 (RA) Pulse Ox Interpretation: Normal - Radiology CXR: Interpreted by Me CXR Interpretation: Yes: No Acute Disease Reevaluation Time: 22:15 Reassessment Condition: Improved (anxiety resolved) Medical Decision Making Medical Decision Making: panic, anxiety no neurological changes CT head x 4 prior, all neg. Defer repeat head CT for anxiety s/s. prior Card echo 07/14 neg Disposition Doctor Will See Patient In The: Office Counseled Patient/Family Regarding: Studies Performed, Diagnosis - Disposition Referrals: Reina Cisneros MD [Staff Provider] - Anupam Pena MD [Staff Provider] - Disposition: HOME/ ROUTINE Disposition Time: 22:15 Condition: GOOD Instructions: Panic Disorder, Anxiety, Adult (DC) Forms: [employer] (Italian) - Clinical Impression Clinical Impression: Panic anxiety syndrome - Scribe Statement The provider has reviewed the documentation as recorded by the Scribe (Aletha Cheung) Provider Attestation: All medical record entries made by the Scribe were at my direction and personally dictated by me. I have reviewed the chart and agree that the record accurately reflects my personal performance of the history, physical exam, medi alina decision making, and the department course for this patient. I have also personally directed, reviewed, and agree with the discharge instructions and disposition.
[2018-09-16 22:37] VITALS: BP 111/80; RESP 16; TEMP 97.8
--- NOTE | 2018-09-17 08:42 | RAD ---
Date of service: 09/16/2018 HISTORY: Shortness of breath COMPARISON: 07/10/2018 FINDINGS: LUNGS: Hyperinflation suggestive for COPD and or emphysematous changes. Biapical pleural thickening. PLEURA: No significant pleural effusion identified, no pneumothorax apparent. CARDIOVASCULAR: No atherosclerotic calcification present Normal. OSSEOUS STRUCTURES: No significant abnormalities. VISUALIZED UPPER ABDOMEN: Normal. OTHER FINDINGS: None. IMPRESSION: No focal infiltrate or effusion.
--- NOTE | 2018-09-18 19:13 | CARD ---
APPROVED REPORT Date of service: 09/16/2018 EKG Measurement Heart [id number] <Conclusion> Normal sinus rhythm Normal ECG
== END 2018-09-16 22:35 | disposition home or self-care (01) ==
LOC: C.ER 20:42
DX: F41.0 Panic disorder [episodic paroxysmal anxiety] (principal); I10 Essential (primary) hypertension